=== PATIENT | male | born 1985 | race Caucasian/White ===

== ENCOUNTER 2019-01-10 18:49 | Emergency (ER) | payer OTHER, MEDICAID, SELFPAY ==
[2019-01-10 18:54] VITALS: BP 128/83; PULSE 73; RESP 18; TEMP 36.7; O2SAT 98; BMI 26.5
--- NOTE | 2019-01-10 19:00 | ED.SKABFB ---
HPI - Skin/Abscess/Foreign Bdy General Chief complaint: Skin/Abscess/Foreign Body Stated complaint: poked right wrist with leonid thorn,bleed Time Seen by Provider: 01/10/19 19:00 Source: patient Mode of arrival: ambulatory Limitations: no limitations History of Present Illness HPI narrative: Patient is an otherwise healthy 33-year-old male here for evaluation of 3 pokes to the volar aspect of his right wrist. He states that he tripped and fell into a leonid atkinson. He states he was poked in 3 different places. He states that afterwards he had ?quite a bit of bleeding ?which is why he came in to the emergency department. By the time he arrived here the symptoms had resolved. Related Data Home Medications Medication Instructions Recorded Confirmed fexofenadine 180 mg tablet 180 mg PO DAILY 04/09/18 11/11/18 Previous Rx's Medication Instructions Recorded sumatriptan succinate [Imitrex] 0 PO PRN PRN #10 tab 02/20/17 buspirone 15 mg tablet 15 mg PO BID #60 tab 12/28/18 cephalexin [Keflex] 500 mg PO QID 5 Days #20 cap 01/10/19 Allergies Allergy/AdvReac Type Severity Reaction Status Date / Time No Known Drug Allergies Allergy Verified 01/10/19 19:13 Review of Systems Constitutional Denies fever(s) Musculoskeletal Comments: No right wrist pain. No right hand pain Integumentary/Breasts Comments: Three small puncture wounds to the right wrist Neurologic Comments: No tingling to the right hand Hematologic/Lymphatic Denies easy bleeding and Denies easy bruising [facility] Medical History Acne (Chronic 1994) Adjustment disorder (Chronic 2011) Anxiety (Chronic 2011) CTS (carpal tunnel syndrome) (Chronic 2012) Chronic back pain (Chronic 2010) Depression (Chronic 2011) Hayfever (Chronic 1994) Labral tear of left hip joint (Chronic) Migraines (Chronic 2001) Neuropathy of left upper extremity (Chronic) RLS (restless legs syndrome) (Chronic 1994) Recurrent sinusitis (Chronic 1999) Rotator cuff injury (Chronic) Shoulder pain (Chronic 2008) Bulging of cervical intervertebral disc (Resolved 10/26/13) Cervical stenosis of spinal canal (Resolved 10/26/13) Chicken pox (Resolved 1989) Other chronic sinusitis (Resolved 06/02/15) Surgical History Anesthesia (Resolved) History of hip surgery (Resolved 01/2013) History of shoulder surgery (Resolved 06/2013) History of sinus surgery (Resolved 10/2014) Status post debridement (Resolved 05/2012) Status post subacromial decompression (Resolved 06/2013) Family History (Updated 04/09/18 @ 12:06 by Kourtney Leblanc) Father Age: 59 Benign brain tumor Grandfather Cancer Prostate cancer Grandmother Age: 89 Stroke Grandfather No problems noted. Grandmother No problems noted. Brother No problems noted. Brother No problems noted. Social History marital status: education level: high school seatbelt use: always helmet use: Yes water heater temp set < 120 deg: Yes working smoke detector in home: Yes fire extinguisher in home: Yes carbon monox detector in home: Yes firearms in home: No Smoking Status: Former smoker alcohol intake: never substance use type: does not use during the past year weight has: remained stable well-balanced diet: daily or most days daily servings fruits/ve or more times/day caffeine: Yes eating out: 1-3 times/week Type(s) of exercise: walking, bicycling, weight lifting and running frequency: 5-6 times per week duration: 60-90 minutes/day Family History Father Age: 59 Benign brain tumor Grandfather Cancer Prostate cancer Grandmother Age: 89 Stroke Grandfather No problems noted. Grandmother No problems noted. Brother No problems noted. Brother No problems noted. Social History marital status: education level: high school seatbelt use: always helmet use: Yes water heater temp set < 120 deg: Yes working smoke detector in home: Yes fire extinguisher in home: Yes carbon monox detector in home: Yes firearms in home: No Smoking Status: Former smoker alcohol intake: never substance use type: does not use during the past year weight has: remained stable well-balanced diet: daily or most days daily servings fruits/ve or more times/day caffeine: Yes eating out: 1-3 times/week Type(s) of exercise: walking, bicycling, weight lifting and running frequency: 5-6 times per week duration: 60-90 minutes/day Exam Initial Vital Signs Initial Vital Signs: Vital Signs Temperature 98.0 F 01/10/19 18:54 Pulse Rate 73 01/10/19 18:54 Respiratory Rate 18 01/10/19 18:54 Blood Pressure 128/83 01/10/19 18:54 Pulse Oximetry 98 01/10/19 18:54 Const General: cooperative, healthy appearing, comfortable, well developed, well groomed and No acute distress Orientation: alert, awake and oriented x3 HENMT Head: normal to inspection and normocephalic Resp Effort & Inspection: normal respiratory effort Auscultation: clear to auscultation bilaterally Cardio Rate: regular rate Rhythm: regular rhythm Pulses: radial pulses present on the right Skin Rashes: no rashes Other: Patient with 3 very small puncture wounds on the volar aspect of his right wrist. Two on the radial aspect and 1 on the ulnar aspect. No active bleeding. Neuro General: alert and awake Cognition: normal cognition Speech: speech normal Extrem General: capillary refill normal Other: Right wrist and right hand and right forearm unremarkable. Course Vital Signs - 8 hr 01/10/19 18:54 Temperature 98.0 F Pulse Rate 73 Respiratory Rate 18 Blood Pressure 128/83 Pulse Oximetry 98 MDM - Skin/Abscess/Foreign Bdy MDM Narrative Medical decision making narrative: Patient has very superficial puncture wounds to the right wrist. There is no active bleeding. He is up-to-date on immunizations. He is neurovascularly intact. I do not feel any foreign bodies on exam. Will hold on an x-ray. There is no signs of infection with this is not surprising since the event occurred just prior to arrival here in the ER. They are going out of town in the near future. I will send home with a prescription for antibiotics however they were informed to not fill this prescription and not take it until any signs of infection start. He was informed that if no signs started that he can just discard the prescription. Patient was also given return precautions and care instructions. He expressed understanding and agreement with plan. Discharge Plan Departure Patient Disposition: Home Clinical Impression: Puncture wound Instructions: DI for Puncture Wound Activity Restrictions/Additional Instructions: You can wash your hands like normal. Do not take the antibiotics that you were given a prescription for this evening until signs of infection like we discussed show up. This may not happen and if it does not then discarded the prescription. Return to the emergency department for any new or worsening symptoms Prescriptions: New cephalexin [Keflex] 500 mg capsule 500 mg PO QID 5 Days Qty: 20 RF: 0 No Action sumatriptan succinate [Imitrex] 50 MG tablet PO PRN PRNQty: 10 RF: 2 buspirone 15 mg tablet 15 mg PO BID Qty: 60 RF: 2 fexofenadine [Allergy Relief (fexofenadine)] 180 mg tablet 180 mg PO DAILY RF: 0 Referrals: Lauren Oates MD [Primary Care Provider] -
--- NOTE | 2019-01-10 19:21 | PC.NURSE ---
Unable to visualize any injury, pt reports sensation within normal limits. no bleeding evident on triage. pt does feel a little diaphoretic. but reports he is feeling better now than he did when this first happened.
== END 2019-01-10 19:20 | disposition home or self-care (01) ==
PROVIDERS: Emergency Provider Emergency Medicine; PCP Family Medicine
DX: S61.531A Puncture wound without foreign body of right wrist, initial encounter (principal); W19.XXXA Unspecified fall, initial encounter
CPT/HCPCS: 99282; 99283